=== PATIENT | female | born 1965 | race Caucasian/White ===

== ENCOUNTER 2017-09-09 15:05 | Emergency (ER) | payer MEDICAID ==
[~2017-09-09] VITALS: Ht 157.5 cm; Wt 49.9 kg
[2017-09-09 15:20] VITALS: BP_SYST 115
[2017-09-09] MEDS ORDERED: KETOROLAC TROMETHAMINE 60 MG/2 ML VIAL IM ONE (16:00)
[2017-09-09] MEDS ORDERED: PROCHLORPERAZINE EDISYLATE 10 MG/2 ML VIAL IM ONE (16:00)
[2017-09-09] MEDS ORDERED: AMOXICILLIN/CLAVULANATE POTASSIUM 875 MG TABLET PO ONE (16:00)
[2017-09-09 16:07] VITALS: BP_SYST 115
== END 2017-09-09 16:07 | disposition home or self-care (01) ==
LOC: SED 15:05
DX: J01.90 Acute sinusitis, unspecified (principal); R03.0 Elevated blood-pressure reading, without diagnosis of hypertension; E78.5 Hyperlipidemia, unspecified
CPT/HCPCS: 96372; 99284; J0780; J1885